=== PATIENT | female | born 1980 | race Hispanic/Latino ===

== ENCOUNTER 2021-11-21 13:47 | Outpatient (CLI) | payer BC | END 2021-11-21 13:48 | disposition home or self-care (01) | LOC: BICMAMMO 13:47 | PROVIDERS: ATTEND Family Medicine | DX: Z12.31 Encounter for screening mammogram for malignant neoplasm of breast (principal) | CPT/HCPCS: 77063; 77067 ==

== ENCOUNTER 2022-10-09 09:13 | Outpatient (CLI) | payer BC | END 2022-10-09 09:14 | disposition home or self-care (01) | LOC: DTY/OP 09:13 | PROVIDERS: ATTEND Nurse Practitioner Family | DX: E66.8 Other obesity (principal); Z68.41 Body mass index [BMI] 40.0-44.9, adult; Z71.3 Dietary counseling and surveillance | CPT/HCPCS: 97802 ==